=== PATIENT | male | born 1975 | race Caucasian/White ===

== ENCOUNTER 2021-07-11 15:38 | Emergency (ER) | payer MEDICAID ==
[~2021-07-11] VITALS: Ht 177.8 cm; Wt 120.2 kg
--- NOTE | 2021-07-11 16:03 | ED General ---
General Chief Complaint: COVID19 Suspect/Confirmed Stated Complaint: COUGH, CONGESTION,SORE THROAT Source of Information: Patient Exam Limitations: No Limitations History of Present Illness Date Seen by Provider: Jul 11, 2021 Time Seen by Provider: 16:01 Initial Comments To ER with nasal congestion sore throat cough headache fevers. Headache started on 07/06/2021. Fever started on the and bilateral lateral lower chest pain started about 3 days ago. He has a painful mostly nonproductive but occasionally productive cough. He has had both Pfizer vaccines. His primary care provider called him in some [employer] yesterday but he denies much improvement. Timing/Duration: 1-2 Days Severity: Moderate Associated Systoms: Cough, Fever/Chills, Headaches; No Malaise, No Nausea/Vomiting Allergies and Home Medications Allergies Coded Allergies: No Known Drug Allergies (Unverified , 07/11/21) Patient Home Medication List Home Medication List Reviewed: Yes Acetaminophen with Codeine (Acetaminophen-Cod #3 Tablet) 1 Each Tablet, 1 EACH PO Q4H PRN for COUGH Prescribed by: WANG OLVERA on 07/11/21 1636 Cefuroxime Axetil (Cefuroxime) 250 Mg Tablet, 250 MG PO BID Prescribed by: WANG OLVERA on 07/11/21 1635 Prednisone (Prednisone) 20 Mg Tab, 40 MG PO DAILY Prescribed by: WANG OLVERA on 07/11/21 1638 Review of Systems Review of Systems Constitutional: see HPI, chills, fever EENTM: see HPI, throat pain Respiratory: see HPI, cough Cardiovascular: no symptoms reported Genitourinary: no symptoms reported Musculoskeletal: no symptoms reported Skin: no symptoms reported Psychiatric/Neurological: No Symptoms Reported Hematologic/Lymphatic: No Symptoms Reported Immunological/Allergic: no symptoms reported Physical Exam Vital Signs Vital Signs - First Documented Capillary Refill : Height, Weight, BMI Height: '" Weight: lbs. oz. kg; BMI Method: General Appearance: No Apparent Distress, WD/WN, Obese, Other (Oxygen is 95 to 99% on room air. No accessory muscle use lungs are clear.) Eyes: Bilateral Eye Normal Inspection, Bilateral Eye PERRL, Bilateral Eye EOMI Neck: Full Range of Motion, Normal Inspection Respiratory: No Accessory Muscle Use, No Respiratory Distress Cardiovascular: Regular Rate, Rhythm, Normal Peripheral Pulses Gastrointestinal: Normal Bowel Sounds, Non Tender, Soft Extremity: Normal Capillary Refill, Normal Inspection Neurologic/Psychiatric: Alert, Oriented x3 Skin: Normal Color, Warm/Dry Progress/Results/Core Measures Suspected Sepsis SIRS Temperature: Pulse: Respiratory Rate: Blood Pressure / Mean: Results/Orders Lab Results Laboratory Tests Test 07/11/21 15:55 Range/Units Influenza Type A (RT-PCR) Not Detected Not Detecte Influenza Type B (RT-PCR) Not Detected Not Detecte SARS-CoV-2 RNA (RT-PCR) Not Detected Not Detecte My Orders Orders - WANG OLVERA APRN Covid 19 Inhouse Test (07/11/21 15:59) Influenza A And B By Pcr (07/11/21 15:59) Chest 1 View, Ap/Pa Only (07/11/21 15:59) Vital Signs/I&O 07/11/21 07/11/21 15:50 15:50 Temp 37.0 Pulse 97 Resp 18 B/P (MAP) 152/94 (113) Pulse Ox 95 O2 Delivery Room Air Room Air Capillary Refill : Departure Impression Primary Impression: Bronchitis Disposition: 01 HOME, SELF-CARE Condition: Stable Departure-Patient Inst. Decision time for Depature: 16:34 Referrals: NO,LOCAL PHYSICIAN (PCP) Primary Care Physician Patient Instructions: Acute Bronchitis, Adult (DC) Add. Discharge Instructions: All discharge instructions reviewed with patient and/or family. Voiced understanding. Scripts Prednisone (Prednisone) 20 Mg Tab 40 MG PO DAILY, #6 TAB 0 Refills Prov: WANG OLVERA APRN 07/11/21 Cefuroxime Axetil (Cefuroxime) 250 Mg Tablet 250 MG PO BID, #10 TAB Prov: WANG OLVERA APRN 07/11/21 Acetaminophen with Codeine (Acetaminophen-Cod #3 Tablet) 1 Each Tablet 1 EACH PO Q4H PRN for COUGH for 7 Days, #14 TAB Prov: WANG OLVERA APRN 07/11/21 WANG OLVERA APRN Jul 11, 2021 16:03
[2021-07-11] MEDS ORDERED: CEFU250T80 PO (16:35)
[2021-07-11] MEDS ORDERED: ACET1TAB43 PO (16:35)
[2021-07-11] MEDS ORDERED: PRD20T PO (16:38)
--- NOTE | 2021-07-11 16:41 | Diagnostic Imaging Report ---
HISTORY: Cough. COMPARISON: None. TECHNIQUE: Frontal view of the chest. FINDINGS: There is mild elevation of the right hemidiaphragm. No consolidation is seen. There is no pleural effusion or pneumothorax. The cardiac silhouette is normal in size. IMPRESSION: No acute pulmonary abnormality. Dictated by: Dictated on workstation # [id number]
[2021-07-11 16:45] VITALS: BP 114/73
== END 2021-07-11 16:45 | disposition home or self-care (01) ==
LOC: EDUNIT# 15:38 → ER 15:41
DX: J40 Bronchitis, not specified as acute or chronic (principal); Z20.822 Contact with and (suspected) exposure to COVID-19
CPT/HCPCS: 71045; 87636

== ENCOUNTER 2022-12-06 23:30 | Emergency (ER) | payer SELFPAY ==
[~2022-12-06] VITALS: Ht 182 cm; Wt 83.0 kg
[~2022-12-06 23:30] MED LIST: ACET-11 PO; CEFU250T80 PO; PRD20T PO
--- NOTE | 2022-12-06 23:47 | ED Chest Pain ---
General Chief Complaint: Chest Pain Stated Complaint: CHEST PAIN Source: patient Exam Limitations: no limitations History of Present Illness Date Seen by Provider: Dec 06, 2022 Time Seen by Provider: 23:47 Initial Comments Patient is a 47-year-old male who presents to the emergency department today with a chief complaint of left precordial chest pain. He has a history of hypertension. 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 Tonight at about 530 he states that he felt like his blood pressure was high, he did not take his blood pressure but he took 3 0.1mg tablets of clonidine. He proceeded then to drink about a 12 pack of beer. The patient thinks that sometime around 10 PM he started developing chest pain. Associated friends called EMS for his CP at 11:30pm.He was nauseated and states that he did vomit. He states the pain radiates directly into his back. He did not feel sweaty or short of breath. He states he has had the same pain off and on for 3 years. He has never had cardiac evaluation. He has only seen his primary care doctor twice. He is a remote smoker. He states his mother started having cardiac problems at the age of around 40. He denies recent illnesses such as fevers, chills, cough or congestion. No black or bloody stools recently. No problems with urination. Timing/Duration: 1-3 hours Severity/Quality: moderate, sharp Location: other (left pectoralis area/ just beneath the nipple) Radiation: back (directly into back) Prior CP/Workup: no prior cardiac workup ASA po RESEARCH LABORATORY TECHNICIAN: No NTG SL RESEARCH LABORATORY TECHNICIAN: No Associated Symptoms: nausea/vomiting Allergies and Home Medications Allergies Coded Allergies: No Known Drug Allergies (Unverified , 07/11/21) Patient Home Medication List Home Medication List Reviewed: Yes Acetaminophen with Codeine (Acetaminophen-Cod #3 Tablet) 1 Each Tablet, 1 EACH PO Q4H PRN for COUGH Prescribed by: WANG OLVERA on 07/11/21 1636 Cefuroxime Axetil (Cefuroxime) 250 Mg Tablet, 250 MG PO BID Prescribed by: WANG OLVERA on 07/11/21 1635 Prednisone (Prednisone) 20 Mg Tab, 40 MG PO DAILY Prescribed by: WANG OLVERA on 07/11/21 1638 Review of Systems Review of Systems Constitutional: see HPI Respiratory: No Symptoms Reported Cardiovascular: Chest Pain Gastrointestinal: Nausea, Vomiting Genitourinary: No Symptoms Reported Musculoskeletal: no symptoms reported Skin: no symptoms reported Psychiatric/Neurological: No Symptoms Reported All Other Systems Reviewed Negative Unless Noted: Yes Past Mhpyrmt-Usfghi-Gfcahb Hx Past Medical History Surgery/Hospitalization HX: -Right hand -Broken nose Physical Exam Vital Signs Vital Signs - First Documented 12/06/22 23:33 Temp 36.6 Pulse 64 Resp 16 B/P (MAP) 111/67 (82) Pulse Ox 99 O2 Delivery Room Air Capillary Refill : Height, Weight, BMI Height: '" Weight: lbs. oz. kg; 38.00 BMI Method: General Appearance: No Apparent Distress, WD/WN HEENT: PERRL/EOMI Neck: Normal Inspection Respiratory: Chest Non Tender, Lungs Clear, Normal Breath Sounds, No Accessory Muscle Use, No Respiratory Distress Cardiovascular: Regular Rate, Rhythm, Normal Peripheral Pulses Gastrointestinal: Non Tender, Soft Extremity: Normal Capillary Refill, Normal Inspection, Normal Range of Motion Neurologic/Psychiatric: Alert, Oriented x3, No Motor/Sensory Deficits, Normal Mood/Affect Skin: Normal Color, Warm/Dry Progress/Results/Core Measures Results/Orders Lab Results Laboratory Tests Test 12/06/22 23:35 12/07/22 02:08 Range/Units White Blood Count 11.1 H 4.3-11.0 10^3/uL Red Blood Count 4.45 4.30-5.52 10^6/uL Hemoglobin 14.1 13.3-17.7 g/dL Hematocrit 41 40-54 % Mean Corpuscular Volume 92 80-99 fL Mean Corpuscular Hemoglobin 32 25-34 pg Mean Corpuscular Hemoglobin Concent 34 32-36 g/dL Red Cell Distribution Width 12.3 10.0-14.5 % Platelet Count 245 130-400 10^3/uL Mean Platelet Volume 10.3 9.0-12.2 fL Immature Granulocyte % (Auto) 0 % Neutrophils (%) (Auto) 47 42-75 % Lymphocytes (%) (Auto) 42 12-44 % Monocytes (%) (Auto) 8 0-12 % Eosinophils (%) (Auto) 2 0-10 % Basophils (%) (Auto) 0 0-10 % Neutrophils # (Auto) 5.3 1.8-7.8 10^3/uL Lymphocytes # (Auto) 4.7 H 1.0-4.0 10^3/uL Monocytes # (Auto) 0.9 0.0-1.0 10^3/uL Eosinophils # (Auto) 0.2 0.0-0.3 10^3/uL Basophils # (Auto) 0.1 0.0-0.1 10^3/uL Immature Granulocyte # (Auto) 0.0 0.0-0.1 10^3/uL Prothrombin Time 13.3 12.2-14.7 SEC INR Comment 1.0 0.8-1.4 Activated Partial Thromboplast Time 24 24-35 SEC Sodium Level 135 135-145 MMOL/L Potassium Level 3.2 L 3.6-5.0 MMOL/L Chloride Level 102 98-107 MMOL/L Carbon Dioxide Level 19 L 21-32 MMOL/L Anion Gap 14 5-14 MMOL/L Blood Urea Nitrogen 19 H 7-18 MG/DL Creatinine 1.01 0.60-1.30 MG/DL Estimat Glomerular Filtration Rate 93 BUN/Creatinine Ratio 19 Glucose Level 104 70-105 MG/DL Calcium Level 9.0 8.5-10.1 MG/DL Corrected Calcium 8.8 8.5-10.1 MG/DL Magnesium Level 2.0 1.6-2.4 MG/DL Total Bilirubin 0.5 0.1-1.0 MG/DL Aspartate Amino Transf (AST/SGOT) 18 5-34 U/L Alanine Aminotransferase (ALT/SGPT) 21 0-55 U/L Alkaline Phosphatase 60 40-136 U/L Troponin I < 0.028 < 0.028 <0.028 NG/ML Total Protein 7.3 6.4-8.2 GM/DL Albumin 4.3 3.2-4.5 GM/DL Serum Alcohol 116 H <10 MG/DL Triglycerides Level 138 <150 MG/DL Cholesterol Level 166 < 200 MG/DL LDL Cholesterol Direct 132 H 1-129 MG/DL VLDL Cholesterol 28 5-40 MG/DL HDL Cholesterol 40 40-60 MG/DL My Orders Orders - JOHN HAN MD Ekg Tracing (12/06/22 23:35) Cbc With Automated Diff (12/06/22 23:54) Magnesium (12/06/22 23:54) Ekg Tracing (12/06/22 23:54) Comprehensive Metabolic Panel (12/06/22 23:54) Protime With Inr (12/06/22 23:54) Partial Thromboplastin Time (12/06/22 23:54) O2 (12/06/22 23:54) Monitor-Rhythm Ecg Trace Only (12/06/22 23:54) Lipid Panel (12/07/22 06:00) Ed Iv/Invasive Line Start (12/06/22 23:54) Troponin I [place] (12/06/22 23:54) Alcohol (12/06/22 23:54) Chest 1 View, Ap/Pa Only (12/07/22 00:01) Aspirin Chewable Tablet (Baby Aspirin Ch (12/07/22 00:15) Troponin I [place] (12/07/22 02:00) Vital Signs/I&O 12/06/22 12/07/22 23:33 02:49 Temp 36.6 Pulse 64 78 Resp 16 18 B/P (MAP) 111/67 (82) 124/86 Pulse Ox 99 99 O2 Delivery Room Air Room Air Progress Progress Note : Time: 02:42 Initial ECG Impression Date: Dec 07, 2022 Initial ECG Impression Time: 00:17 Initial ECG Rate: 68 Initial ECG Rhythm: Normal Sinus Initial ECG Intervals CT 112 QRS 117 QTC [address] elevation in lead V2; asymmetric elevation of the ST segment in lead V1 - also about 1mm EKG : EKG Time: 00:42 Rate: 62 Rhythm: Normal Sinus Intervals: QRS Intervals CT 165 QRS 128 QTc 428 ECG Comparisson: Unchanged ECG Impression: Normal Comment RBBB; no ST elevation or depression. Diagnostic Imaging Diagonstic Imaging: Xray Plain Films/CT/US/NM/MRI: chest Comments chest xray - independent interpretation by me - no acute findings (borderline cardiomegaly) Departure Impression Primary Impression: Atypical chest pain Additional Impression: Alcohol intoxication Qualified Codes: F10.929 - Alcohol use, unspecified with intoxication, unspecified Disposition: 01 HOME, SELF-CARE Condition: Improved Departure-Patient Inst. Decision time for Depature: 02:40 Referrals: ARNOLDO MOON MD FACP FACC [facility]S MARIA D QUINN MD NO,LOCAL PHYSICIAN (PCP) Primary Care Physician Patient Instructions: Chest Pain That Is Not Caused by the Heart (DC), Alcohol Intoxication ED Add. Discharge Instructions: Please call your primary care doctor later today for a follow up appointment. Take your medications as prescribed by your primary care doctor. You should follow up with a [facility] for your chest pain. I have attached contact information for both of our local cardiologists for your convenience. Return to the Emergency Department for any new, concerning or emergent complaints. JOHN HAN MD Dec 06, 2022 23:47
[2022-12-07 00:03] LABS: BASOPHILS # (AUTO) 0.1 10^3/uL (0.0-0.1); BASOPHILS % (AUTO) 0 % (0-10); EOSINOPHILS # (AUTO) 0.2 10^3/uL (0.0-0.3); EOSINOPHILS % (AUTO) 2 % (0-10); HEMATOCRIT 41 % (40-54); HEMOGLOBIN 14.1 g/dL (13.3-17.7); LYMPHOCYTES # (AUTO) 4.7 10^3/uL (1.0-4.0); LYMPHOCYTES % (AUTO) 42 % (12-44); MEAN CORPUSCULAR HEMOGLOBIN 32 pg (25-34); MEAN CORPUSCULAR HGB CONC 34 g/dL (32-36); MEAN CORPUSCULAR VOLUME 92 fL (80-99); MEAN PLATELET VOLUME 10.3 fL (9.0-12.2); MONOCYTES # (AUTO) 0.9 10^3/uL (0.0-1.0); MONOCYTES % (AUTO) 8 % (0-12); NEUTROPHILS # (AUTO) 5.3 10^3/uL (1.8-7.8); NEUTROPHILS % (AUTO) 47 % (42-75); PLATELET COUNT 245 10^3/uL (130-400); WHITE BLOOD COUNT 11.1 10^3/uL (4.3-11.0)
[2022-12-07 00:05] LABS: ALBUMIN 4.3 GM/DL (3.2-4.5); CHLORIDE 102 MMOL/L (98-107); POTASSIUM 3.2 MMOL/L (3.6-5.0); SODIUM 135 MMOL/L (135-145)
[2022-12-07 00:07] LABS: GLUCOSE 104 MG/DL (70-105); TOTAL PROTEIN 7.3 GM/DL (6.4-8.2)
[2022-12-07 00:08] LABS: CARBON DIOXIDE 19 MMOL/L (21-32)
[2022-12-07 00:09] LABS: BILIRUBIN,TOTAL 0.5 MG/DL (0.1-1.0)
[2022-12-07 00:11] LABS: ALKALINE PHOSPHATASE 60 U/L (40-136); CREATININE SERUM 1.01 MG/DL (0.60-1.30); GFR ESTIMATED 93
[2022-12-07 00:12] LABS: BUN/CREATININE RATIO 19
[2022-12-07 00:14] LABS: ALANINE AMINOTRANSFERASE 21 U/L (0-55)
[2022-12-07] MEDS ORDERED: ASPIRIN 81 MG CHEW (CHILDREN'S ASA) PO ONE (00:15)
[2022-12-07 00:17] LABS: PROTHROMBIN TIME PATIENT 13.3 SEC (12.2-14.7)
[2022-12-07 02:49] VITALS: BP 124/86
[2022-12-07 03:32] LABS: TRIGLYCERIDES 138 MG/DL (<150); VLDL CHOLESTEROL 28 MG/DL (5-40)
[2022-12-07 03:37] LABS: CHOLESTEROL 166 MG/DL (< 200)
[2022-12-07 03:38] LABS: HDL CHOLESTEROL 40 MG/DL (40-60)
--- NOTE | 2022-12-07 07:12 | Diagnostic Imaging Report ---
HISTORY: Chest pain TECHNIQUE: Frontal view the chest COMPARISON: 07/11/2021 FINDINGS: Lung volumes are large. There is no pleural effusion or pneumothorax. The cardiac silhouette is normal in size given portable technique. IMPRESSION: 1. No acute pulmonary abnormality is seen. Dictated by: Dictated on workstation # [id number]
== END 2022-12-07 02:49 | disposition home or self-care (01) ==
LOC: EDUNIT# 23:30 → ER 23:31
DX: R07.89 Other chest pain (principal); F10.129 Alcohol abuse with intoxication, unspecified; I45.10 Unspecified right bundle-branch block; I10 Essential (primary) hypertension; Y90.6 Blood alcohol level of 120-199 mg/100 ml; Z28.310 Unvaccinated for COVID-19
CPT/HCPCS: 80053; 83735; 84484; 85610; 85730; G0480; 36415; 71045; 80061; 80320; 85025; 93005; 93041